=== PATIENT | male | born 1960 | race African-American/Black ===

== ENCOUNTER → 2020-06-24 | Outpatient (CLI) | payer OTHER ==
[2014-09-26 13:33] VITALS: BP 119/87
== END ==
LOC: LAB 13:57
PROVIDERS: ATTEND Internal Medicine Cardiovascular Disease
DX: Z01.812 Encounter for preprocedural laboratory examination (principal); R06.00 Dyspnea, unspecified; Z20.828 Contact with and (suspected) exposure to other viral communicable diseases
CPT/HCPCS: U0003

== ENCOUNTER 2020-06-27 06:52 | Outpatient (CLI) | payer OTHER ==
[2020-06-27] VITALS (14 sets, daily range): BP systolic 128–171; BP diastolic 85–97
[~2020-06-27] VITALS: Ht 175.3 cm; Wt 83.5 kg
[2020-06-27 07:35] LABS: CALCIUM 8.9 mg/dL (8.5-10.1); CREATININE 1.3 mg/dL (0.7-1.3); GFR 67.9; HEMATOCRIT 40.6 % (39.0-53.0); HEMOGLOBIN 13.4 g/dL (13.0-17.5); POTASSIUM 3.9 mmol/L (3.5-5.1); RED BLOOD COUNT 4.49 x10^6/uL (4.30-5.70); RED CELL DISTRIBUTION WIDTH 14.2 % (11.5-14.5); WHITE BLOOD COUNT 6.5 x10^3/uL (4.0-11.0)
[2020-06-27] MEDS ORDERED: LIDOCAINE 1% Multi-Dose 20 ML VIAL. ONE (07:37)
[2020-06-27] MEDS ORDERED: IODIXANOL 320 MG/ML 100 ML VIAL. ONE (07:37)
[2020-06-27] MEDS ORDERED: HEPARIN for ARTERIAL LINE 1,500 ML ONE (07:37)
[2020-06-27] MEDS ORDERED: BUDE10.7 IH (07:56)
[2020-06-27] MEDS ORDERED: ALBU2.5V8 IH (07:56)
[2020-06-27] MEDS ORDERED: MONT5TAB6 PO (07:56)
[2020-06-27 08:00] LABS: PROTHROMBIN TIME PATIENT 12.5 SEC (11.7-14.0)
[2020-06-27] MEDS ORDERED: VERAPAMIL 5 MG/2 ML VIAL. ONE (08:22)
[2020-06-27] MEDS ORDERED: NITROGLYCERIN 200 MCG/2 ML SYRINGE FOR CATH/VASC LAB. ONE (08:22)
[2020-06-27] MEDS ORDERED: fentaNYL PF VIAL 100 MCG/2 ML VIAL ONE (08:22)
[2020-06-27] MEDS ORDERED: HEPARIN for IV BOLUS 10,000 UNIT/10 ML VIAL. ONE (08:22)
[2020-06-27] MEDS ORDERED: MIDAZOLAM HCL/PF 2 MG/2 ML VIAL. ONE (08:22)
[2020-06-27] MEDS ORDERED: fentaNYL PF VIAL 100 MCG/2 ML VIAL IV ONE (09:30)
[2020-06-27] MEDS ORDERED: HEPARIN for IV BOLUS 10,000 UNIT/10 ML VIAL. IART ONE (09:30)
[2020-06-27] MEDS ORDERED: LIDOCAINE 1% Multi-Dose 20 ML VIAL. INJ ONE (09:30)
[2020-06-27] MEDS ORDERED: VERAPAMIL 5 MG/2 ML VIAL. IART ONE (09:30)
[2020-06-27] MEDS ORDERED: IODIXANOL 320 MG/ML 100 ML VIAL. IART ONE (09:30)
[2020-06-27] MEDS ORDERED: MIDAZOLAM HCL/PF 2 MG/2 ML VIAL. IV ONE (09:30)
[2020-06-27] MEDS ORDERED: NITROGLYCERIN 200 MCG/2 ML SYRINGE FOR CATH/VASC LAB. IART ONE (09:30)
[2020-06-27] MEDS ORDERED: CONTRAST GIVEN. MC PRN (09:45)
--- NOTE | 2020-06-27 12:17 | NUR ---
Discharge Note: KATHIA TANG Discharge instructions and discharge home medications reviewed with Patient and a copy given. All questions have been answered and understanding verbalized. The following instructions and handouts were given: MODERATE SEDATION, RADIAL SITE CARE AND INCISION CARE. Discontinued LEFT FOREARM PERIPHERAL IV, BANDAID APPLIED. RIGHT RADIAL DRESSING C/D/I AND ARMBOARD SECURE. Patient discharged to HOME WITH HIS VIA PRIVATE VEHICLE.
--- NOTE | 2020-06-27 17:09 | CARD ---
MR#: [id number] Date of Study: 06/27/2020 Ordering Physician: SOMMER MAC, Referring Physician: SOMMER MAC, Tech: DAMIEN INTERIANO RTR APPROVED REPORT Technologist: DAMIEN INTERIANO RTR Nurse: Jihan Leonard R.N. Procedure(s) performed: MODERATE SEDATION TIME: 44 MINUTES FLUORO TIME: 6.1 MIN DOSE: 41.5 GYCM2 CONTRAST: 54CC VISI LHC, Coronary angiography, RHC HISTORY : The patient is a 60 year-old male with a history of . INDICATION The indication(s) include : dyspnea, Unstable angina. [facility] Clinical Frailty Scale [facility] Clinical Frailty Scale: Moderately Frail Heart Failure Heart Failure: Yes If Yes, Newly Diagnosed: Yes If Yes, HF Type: Diastolic If Yes, NYHA Class: Class II CASE TECHNIQUE During this case, Fluoroscopy and low osmolar contrast were used for imaging. PROCEDURE NARRATIVE After appropriate informed consent the patient was brought to the catheterization laboratory. The [facility] neck and right wrist were prepped and draped in usual sterile fashion. Under 1% lidocaine local anesthesia with ultrasound and fluoroscopic guidance a 5 [place] sheath was p laced in the right internal jugular vein. Next, a 6 [place] sheath was placed in the right radial art thanh. A 5 [place] PA catheter was advanced to the right heart chambers and pressures and saturations were ob tained. Diagnostic angiography was performed with a JL 3.5 and JR4 catheters. At case completion the right internal jugular catheter and radial sheaths were removed and hemostasis was achieved via manual compression and a radial Terumo band. Findings: Right heart catheterization: RA 11 mmHg RV 46/10/14 PA 47/12/30 Wedge 11 mmHg Wedge saturation 99% PA saturation 72.1% Camilo cardiac output 5.1 L/min [place] cardiac index 2.5 Coronary angiography Left main is a large caliber long vessel with normal angiographic appearance LAD is a large caliber vessel with normal angiographic appearance D1 is a moderate caliber vessel with a high takeoff and an ostial 20% stenosis Left circumflex is a moderate to large caliber dominant vessel OM1 is a moderate caliber vessel with normal angiographic appearance L PDA is a small caliber vessel with normal angiographic appearance RCA is a small caliber nondominant vessel with normal angiographic appearance Conclusion 1. Mildly elevated right ventricular filling pressures 2. Mild pulmonary hypertension, mean PA 30 mmHg 3. Normal cardiac output 4. No significant obstructive coronary disease Recommendations 1. Aggressive medical therapy and treatment of cor pulmonale per pulmonary service Signed by : Sommer Mac, Electronically Approved : 06/27/2020 17:08:50
== END 2020-06-27 12:50 | disposition home or self-care (01) ==
LOC: CCL 06:52
PROVIDERS: ATTEND Internal Medicine Cardiovascular Disease
DX: I20.0 Unstable angina (principal); R06.00 Dyspnea, unspecified; J45.909 Unspecified asthma, uncomplicated; I27.20 Pulmonary hypertension, unspecified; Z87.891 Personal history of nicotine dependence; Z79.899 Other long term (current) drug therapy; Z98.890 Other specified postprocedural states
CPT/HCPCS: 36415; 76937; 80048; 85027; 85610; 93460; 99152; 99153; C1769; C1773; C1892; J1644; J2250; J3010; J3490; Q9967

== ENCOUNTER → 2020-08-13 | Outpatient (CLI) | payer OTHER ==
[2020-06-27 12:15] VITALS: BP 171/91
[~2020-08-13] MED LIST: ALBU2.5V8 IH; BUDE10.7 IH; MONT5TAB6 PO
--- NOTE | 2020-08-15 09:22 | SLEEP ---
DATE OF STUDY: 08/13/2020 HOME SLEEP STUDY ATTENDING PHYSICIAN: Florecita Tavera MD. The patient is a 60-year-old who weighs 180 pounds with a BMI of 27.4. The patient's [place] score was 14. The patient underwent home sleep study performed at [facility]. Total recording time was 595 minutes. During the night study, the patient had 10 obstructive apneas, no central or mixed apneas and 20 hypopneas. The patient's AHI was 10 per hour. Nocturnal oximetry study revealed an average oxygen saturation of 92% with the lowest of 80%. Twenty-one minutes were spent with oxygen saturation of less than 90%. Mean heart rate 83 beats per minute. IMPRESSION: 1. Mild obstructive sleep apnea at an AHI of 10 per hour. 2. Mild nocturnal hypoxia secondary to obstructive sleep apnea. RECOMMENDATIONS: 1. The patient is clinically symptomatic with an [place] score of 14. I would recommend treating the patient's sleep apnea with either CPAP versus oral appliance. 2. Once the patient is optimally treated, then follow up in 4-6 weeks to assess compliance with treatment and to document clinical improvement. 3. Avoid PHYSIOTHERAPIST'S ASSISTANT depressants. 4. Cautioned regarding driving until symptoms of sleep apnea resolve with above recommendation. RUBY REYES MD DR: NELLY/mariya JOB#: [id number] / [id number] FLORECITA Manjarrez MD
== END ==
LOC: RT 09:17
PROVIDERS: ATTEND Internal Medicine Pulmonary Disease
DX: G47.36 Sleep related hypoventilation in conditions classified elsewhere (principal); G47.33 Obstructive sleep apnea (adult) (pediatric)
CPT/HCPCS: G0399

== ENCOUNTER → 2021-10-30 | Outpatient (CLI) | payer OTHER ==
[2020-06-27 12:15] VITALS: BP 171/91
--- NOTE | 2021-10-30 13:35 | KCIC ---
CT THORAX WO History: Follow-up abnormal CT. Covid infection. Comparison: CT chest 08/09/2020, 02/23/2020. CT abdomen and pelvis 05/23/2019. Technique: Noncontrast CT of the chest. Findings: Assessment is limited by lack of IV contrast. Cardiovascular: Dilated aortic root measuring 4.2 cm at the sinuses of Valsalva. No significant coron bjorn artery calcification. Normal heart size. Mediastinum and gal: The thyroid and esophagus are unremarkable. No enlarged adenopathy. Calcified r ight hilar lymph nodes. Airways, lungs and pleura: The central airways are patent. There are multifocal platelike atelectasis including the lingula and bilateral lower lobes. Redemonstrated calcified and noncalcified nodules i n a linear orientation at the right lower lobe extending to the posterior medial pleural surface. Thi s appears not significantly changed from May 2019 abdomen and pelvis however only partially with in the [id number] on that exam. No new consolidation or pulmonary nodules. No pleural effusion. Upper abdomen: Calcified granulomatous within the spleen. Osseous structures and soft tissues: T10 vertebral body hemangioma. Impression: 1. Chronic calcified and noncalcified nodular opacities extending from the right lower lobe hilum to the pleural surface associated with calcified hilar lymph nodes and in the setting of splenic calcif ied granulomas likely represent sequela of granulomatous disease. Findings similar to May 2019 c onsistent with benign process. ------ Exposure: One or more of the following individualized dose reduction techniques were utilized for thi s examination: 1. Automated exposure control 2. Adjustment of the mA and/or kV according to patient size 3. Use of iterative reconstruction technique. Electronically signed by: Doron Knight MD (10/30/2021 1:32 PM) [facility]
== END ==
LOC: KCIC CT 12:21
PROVIDERS: ATTEND Internal Medicine Pulmonary Disease
DX: J98.11 Atelectasis (principal); R91.8 Other nonspecific abnormal finding of lung field; J84.10 Pulmonary fibrosis, unspecified; R93.89 Abnormal findings on diagnostic imaging of other specified body structures; D18.09 Hemangioma of other sites
CPT/HCPCS: 71250